=== PATIENT | male | born 1950 | race Two or more races ===

== ENCOUNTER 2017-06-04 13:22 | Outpatient (CLI) | payer OTHER | END 2017-06-04 14:02 | disposition home or self-care (01) | LOC: SONOGRAMA 13:22 | DX: N40.0 Benign prostatic hyperplasia without lower urinary tract symptoms (principal); R31.21 Asymptomatic microscopic hematuria ==

== ENCOUNTER 2018-11-04 07:25 | Emergency (ER) | payer OTHER ==
[~2018-11-04] VITALS: Ht 177.8 cm; Wt 108.9 kg
[2018-11-04] MEDS ORDERED: LOSARTAN-HCTZ1 EAC1 PO (07:46)
== END 2018-11-04 11:02 | disposition home or self-care (01) ==
LOC: ER 07:25
DX: M25.561 Pain in right knee (principal)

== ENCOUNTER 2019-11-08 08:59 | Outpatient (CLI) | payer OTHER ==
[~2019-11-08 08:59] MED LIST: LOSARTAN-HCTZ1 EAC1 PO
== END 2019-11-08 09:05 | disposition home or self-care (01) ==
LOC: RAD 08:59
PROVIDERS: ATTEND Specialist
DX: J45.998 Other asthma (principal)

== ENCOUNTER → 2020-12-11 07:46 | Outpatient (CLI) | payer OTHER | END | disposition home or self-care (01) | LOC: LAB 07:46 | PROVIDERS: ATTEND Internal Medicine Hematology & Oncology | DX: D50.8 Other iron deficiency anemias (principal); R79.89 Other specified abnormal findings of blood chemistry; I10 Essential (primary) hypertension; R74.02 Elevation of levels of lactic acid dehydrogenase [LDH]; K76.89 Other specified diseases of liver; E55.9 Vitamin D deficiency, unspecified; D51.1 Vitamin B12 deficiency anemia due to selective vitamin B12 malabsorption with proteinuria; D51.0 Vitamin B12 deficiency anemia due to intrinsic factor deficiency; E03.8 Other specified hypothyroidism; E06.3 Autoimmune thyroiditis; R97.0 Elevated carcinoembryonic antigen [CEA]; R97.8 Other abnormal tumor markers; R97.20 Elevated prostate specific antigen [PSA]; E11.22 Type 2 diabetes mellitus with diabetic chronic kidney disease; E11.9 Type 2 diabetes mellitus without complications; E78.2 Mixed hyperlipidemia; J45.998 Other asthma ==

== ENCOUNTER 2020-12-11 08:20 | Outpatient (CLI) | payer OTHER | END 2020-12-11 08:33 | disposition home or self-care (01) | LOC: SONOGRAMA 08:20 | PROVIDERS: ATTEND Specialist | DX: Q61.01 Congenital single renal cyst (principal); I13.11 Hypertensive heart and chronic kidney disease without heart failure, with stage 5 chronic kidney disease, or end stage renal disease ==

== ENCOUNTER 2021-06-18 09:13 | Outpatient (CLI) | payer OTHER | END 2021-06-18 09:25 | disposition home or self-care (01) | LOC: RAD 09:13 | PROVIDERS: ATTEND Specialist | DX: J45.998 Other asthma (principal) ==

== ENCOUNTER 2021-09-13 08:14 | Outpatient (CLI) | payer OTHER | END 2021-09-13 08:20 | disposition home or self-care (01) | LOC: SONOGRAMA 08:14 | PROVIDERS: ATTEND Specialist | DX: I71.4 Abdominal aortic aneurysm, without rupture (principal) ==

== ENCOUNTER 2021-12-03 08:45 | Outpatient (CLI) | payer OTHER | END 2021-12-03 08:46 | disposition home or self-care (01) | LOC: SONOGRAMA 08:45 | PROVIDERS: ATTEND Specialist | DX: N18.31 Chronic kidney disease, stage 3a (principal) ==

== ENCOUNTER 2023-01-13 09:38 | Outpatient (CLI) | payer OTHER | END 2023-01-13 09:42 | disposition home or self-care (01) | LOC: RAD 09:38 | PROVIDERS: ATTEND Specialist | DX: J45.991 Cough variant asthma (principal) ==